=== PATIENT | male | born 2000 | race African-American/Black ===

== ENCOUNTER 2024-08-06 03:14 | Emergency (ER) | payer OTHER ==
[~2024-08-06] VITALS: Ht 172.7 cm; Wt 73.8 kg
[2024-08-06 03:22] VITALS: TEMP 97.3
[2024-08-06 08:12] VITALS: BP 140/73; O2SAT 98
== END 2024-08-06 08:14 | disposition home or self-care (01) ==
LOC: M ED 03:14
DX: S62.141A Displaced fracture of body of hamate [unciform] bone, right wrist, initial encounter for closed fracture (principal); W22.8XXA Striking against or struck by other objects, initial encounter; Y92.410 Unspecified street and highway as the place of occurrence of the external cause; Y93.89 Activity, other specified; Y99.9 Unspecified external cause status

== ENCOUNTER → 2024-08-27 | Outpatient (CLI) | payer OTHER ==
[~2024-08-27] MED LIST: PERC5TAB12 PO
== END ==
LOC: M PLAIMG 13:15
PROVIDERS: ATTEND Physician Assistant
DX: S62.141A Displaced fracture of body of hamate [unciform] bone, right wrist, initial encounter for closed fracture (principal); X58.XXXA Exposure to other specified factors, initial encounter; Y92.9 Unspecified place or not applicable

== ENCOUNTER 2024-08-31 13:23 | Day surgery (SDC) | payer OTHER ==
[~2024-08-31] VITALS: Ht 175.3 cm; Wt 72.8 kg
[2024-08-31] MEDS ORDERED: GLYCOPYRROLATE INJ 0.2 MG/ML 2 ML VIAL ONE (13:24)
[2024-08-31] MEDS ORDERED: ONDANSETRON 4MG 2ML VIAL As Ordered ONE (14:40)
[2024-08-31] MEDS ORDERED: LIDOCAINE 2% 100MG/5ML SDV (FOR ANES.) As Ordered ONE (14:40)
[2024-08-31] MEDS ORDERED: propofoL 200 MG/20 ML VIAL As Ordered ONE (14:40)
[2024-08-31] MEDS ORDERED: GLYCOPYRROLATE INJ 0.2 MG/ML 2 ML VIAL As Ordered ONE (14:40)
[2024-08-31] MEDS ORDERED: MIDAZOLAM INJ 2MG/2ML VIAL As Ordered ONE (14:41)
[2024-08-31] MEDS ORDERED: fentaNYL 100 MCG/2 ML INJECTION As Ordered ONE (14:41)
[2024-08-31] MEDS: ceFAZolin SOD 2 GM in IV 1 EA IV ONE (15:00)
[2024-08-31] MEDS: BACITRACIN OINTMENT 30GM TUBE As Ordered ONE (16:00)
[2024-08-31] MEDS ORDERED: dexmedeTOMIDine (4MCG/ML)200MCG/50ML BTL (PRECEDEX) As Ordered ONE (16:01)
[2024-08-31] MEDS ORDERED: KETOROLAC 60MG 2ML VIAL As Ordered ONE (16:03)
[2024-08-31] MEDS ORDERED: ACETAMINOPHEN 1000MG/100ML IV BAG As Ordered ONE (16:04)
[2024-08-31] MEDS ORDERED: MEPERIDINE 25 MG/ML 1ML VIAL IV PRN (16:10)
[2024-08-31] MEDS ORDERED: diphenhydrAMINE 50MG/ML VIAL IV PRN (16:10)
[2024-08-31] MEDS ORDERED: METOCLOPRAMIDE INJ 10MG/2ML VIAL IV PRN (16:10)
[2024-08-31] MEDS ORDERED: PERC5TAB12 PO (16:22)
[2024-08-31] MEDS: oxyCODONE 5MG TAB PO PRN (16:55)
[2024-08-31] MEDS: ONDANSETRON 4MG 2ML VIAL IV PRN (17:01)
[2024-08-31] MEDS: fentaNYL 100 MCG/2 ML INJECTION IV PRN (17:01)
[2024-08-31 17:50] VITALS: BP 135/77; TEMP 97.2; O2SAT 100
== END 2024-08-31 17:56 | disposition home or self-care (01) ==
LOC: M SDC 13:23
PROVIDERS: ATTEND Orthopaedic Surgery Hand Surgery
DX: S62.314A Displaced fracture of base of fourth metacarpal bone, right hand, initial encounter for closed fracture (principal); S62.141A Displaced fracture of body of hamate [unciform] bone, right wrist, initial encounter for closed fracture; W22.8XXA Striking against or struck by other objects, initial encounter; Y92.9 Unspecified place or not applicable; Y93.9 Activity, unspecified; Y99.9 Unspecified external cause status
CPT/HCPCS: 26686; 76000; J0131; J0665; J0690; J1100; J1596; J1885; J2250; J2405; J3010

== ENCOUNTER → 2024-09-10 | Outpatient (CLI) | payer OTHER | LOC: M SOG 13:55 | PROVIDERS: ATTEND Physician Assistant | DX: Z47.89 Encounter for other orthopedic aftercare (principal); M25.541 Pain in joints of right hand ==

== ENCOUNTER → 2024-10-05 | Outpatient (CLI) | payer OTHER | LOC: M SOG 10:14 | PROVIDERS: ATTEND Physician Assistant | DX: S62.304D Unspecified fracture of fourth metacarpal bone, right hand, subsequent encounter for fracture with routine healing (principal) ==

== ENCOUNTER → 2024-11-09 | Outpatient (CLI) | payer OTHER | LOC: M SOG 07:53 | PROVIDERS: ATTEND Physician Assistant | DX: S62.304D Unspecified fracture of fourth metacarpal bone, right hand, subsequent encounter for fracture with routine healing (principal) ==